=== PATIENT | female | born 1990 | race Caucasian/White ===

== ENCOUNTER 2016-12-10 12:43 | Emergency (ER) | payer OTHER ==
[~2016-12-10] VITALS: Ht 152.4 cm; Wt 65.9 kg
[~2016-12-10 12:43] MED LIST: FENU500C PO; HYDR-4003 PO; ONDA8TAB7 PO; PREN-99 PO; YEAS680T PO
[2016-12-10 12:49] VITALS: BP 118/73; PULSE 84; RESP 17; O2SAT 99
[2016-12-10] MEDS ORDERED: HYDROcodone-APAP 5-325 mg Tablet PO ONE (13:05)
--- NOTE | 2016-12-10 13:23 | ED.REPORT ---
HPI-Dental/Mouth Prob Date of Service December 10, 2016 ED Provider: Joel Latif PA-C Kristi is a 26-year-old female who is 27 weeks presenting with right lower jaw pain. Patient had a right lower premolar removed at the urgent care 5 days ago. 4 days ago she states that the clot fell out. She believes she has dry socket. Reports increasing pain, purulent discharge, pain in her right ear, fever of 100.7. She was prescribed hydrocodone/acetaminophen for pain and has not been prescribed antibiotics. She has an appointment to be seen at the dental urgent care tomorrow. She contacted the urgent care and was asked to present to the emergency department. Nursing Notes Stated Complaint: DENTAL EXTRACTION PAIN Chief Complaint: Dental Nursing Notes Reviewed: Yes Allergies: Coded Allergies: latex (Verified Allergy, Intermediate, swelling/rash, 12/10/16) morphine (Verified Allergy, Unknown, SEIZURES, 04/08/16) PATIENT HAS RECEIVED OXYCODONE X SEVERAL DOSES Scheduled Amoxicillin (Amoxicillin) 500 Mg Tablet 500 MG PO QID Fenugreek Seed Extract (Fenugreek) 500 Mg Capsule 1,500 MG PO TID Pnv95/Ferrous Fumarate/FA ( Multivitamins Tablet) 1 Each Tablet 1 EACH PO DAILY Yeast (Figueroa's Yeast) 680 Mg Tablet 3 TABLET PO DAILY Scheduled PRN Hydrocodone-Acetaminophen 5-325 mg (Hydrocodone-Acetaminophen 5-325 mg) 1 Each Tablet 1 TABLET PO Q6H PRN PRN For Pain Hydrocodone-Acetaminophen 5-325 mg (Hydrocodone-Acetaminophen 5-325 mg) 1 Each Tablet 1 TABLET PO Q4H PRN PRN For Pain Ondansetron ODT (Zofran ODT) 8 Mg Tablet 8 MG PO Q6H PRN PRN For Nausea General Time Seen by MD: 12:54 Chief Complaint Other (tooth extraction pain) Past Medical History Past Medical History IBS hiatal hernia Past Surgical History Reports: Appendectomy, Cholecystectomy Smoking History Former Smoker Social History Alcohol Use: Denies alcohol use Drug Use: Denies drug use Occupation work at [employer] 03/2016 Ambulatory Status Independent Review of Systems Review of Systems Note: Negative unless stated otherwise in history of present illness Physical Exam General: Well appearing, well developed, well nourished, no acute distress. Head: Atraumatic, normocephalic. No mastoid tenderness. Eyes: No scleral icterus or injection. No discharge. PERRL. Vision grossly intact. Ears: Pinna and tragus nontender with manipulation. External auditory canal patent, atraumatic and without discharge. Tympanic membrane mckee, shiny and translucent without fluid, bulging, retraction or perforation. Hearing grossly intact. Nose: Symmetrical, nares patent without discharge. No frontal or maxillary sinus tenderness. Mouth/pharynx: Recently extracted tooth right lower premolar, sutures in place. Minimal redness, swelling. No discharge noted. No fluctuance. Mucus membranes moist. Tonsils 2+ and symmetrical, uvula midline. Pharynx noninjected , no cobblestoning or discharge. Voice clear. Neck: No tenderness or lymphadenopathy. Trachea midline. Respiratory: No respiratory distress, no increased work of breathing. Speaks in complete sentences. Skin: Warm and dry. Neurological: Grossly nonfocal. Psychological: alert and oriented. Speech appropriate, linear and logical. Behavior appropriate. Initial Vital Signs Vital Signs (First) Date Time Temp Pulse Resp B/P Pulse Ox O2 Delivery O2 Flow Rate FiO2 12/10/16 12:49 36.2 84 17 118/73 99 Room Air Initial VS: Vital signs normal Re-Eval/Medical Decision Med Decision/Clinical Course Otherwise of a 27 weeks , 26-year-old female presents with a chief complaint of tooth extraction pain. Had a tooth extracted proximally 4 days ago at dental urgent care. She reports the cough fell out and now notes increasing pain, purulent discharge, foul taste. Denies fever, malaise. Physical examination reveals a recently extracted right lower premolar, with stitches in place. Minimal redness, swelling, negative purulent discharge. Positive tenderness. I do not see any drainable abscess. Attempt to contact the patient's dentist but was unsuccessful. The patient is stable and safe to be discharged. Provided prescription for amoxicillin as well as a small amount of hydrocodone/acetaminophen 5/325 mg with precautions. Advised dental follow- up, provided a March the return precautions. Patient verbalizes understanding of and consent to the plan. Discharge & Departure Primary Impression: S/P tooth extraction Tooth loss class: unspecified tooth loss Qualified Code: K08.409 - Partial loss of teeth, unspecified cause, unspecified class Additional Impression: Pain Disposition: Home Discharge Condition All VS Reviewed: Yes Condition: Stable Additional Instructions: Evaluation in the emergency department for extraction site pain includes history , physical examination which is reassuring that your pain is not caused by an immediately dangerous condition, and that you are stable to be discharged. I will provide you with a prescription prescription for amoxicillin to be taken 4 times a day for the next 5 days. Continue treating your pain with the prescription provided to by your dentist. Follow-up with your dentist tomorrow as planned. Return to emergency department for any new or worsening symptoms including increasing pain, fever, vomiting. Referrals: Shani Sorensen MD (PCP) EDSupervising Provider for APC: Sherman Soto MD copies to: Shani Sorensen MD, Seth PA-C December 10, 2016 13:23
[2016-12-10] MEDS ORDERED: AMOX500T2 PO (14:20)
[2016-12-10] MEDS ORDERED: HYDR-4003 PO (14:25)
== END 2016-12-10 14:30 | disposition home or self-care (01) ==
LOC: SED 12:43
DX: O26.892 Other specified pregnancy related conditions, second trimester (principal); K08.409 Partial loss of teeth, unspecified cause, unspecified class; Z3A.27 27 weeks gestation of pregnancy; Z87.891 Personal history of nicotine dependence; Z88.5 Allergy status to narcotic agent; Z91.040 Latex allergy status